=== PATIENT | female | born 1995 | race Asian ===

== ENCOUNTER 2020-05-27 17:56 | Emergency (ER) | payer OTHER ==
[~2020-05-27] VITALS: Ht 165.1 cm; Wt 73.6 kg
[2020-05-27 18:16] VITALS: TEMP 97.7
[2020-05-27 20:02] VITALS: BP 120/88; PULSE 90
== END 2020-05-27 20:08 | disposition home or self-care (01) ==
LOC: COL.ER 17:56 → EDBD 18:00 → COL.ER 20:08
DX: G43.909 Migraine, unspecified, not intractable, without status migrainosus (principal)
CPT/HCPCS: J1200; J1885; J2765; J7030